=== PATIENT | male | born 1965 | race Caucasian/White ===

== ENCOUNTER 2019-10-24 22:29 | Emergency (ER) | payer OTHER ==
--- NOTE | 2019-10-24 23:18 | EDM.PDOC ---
ED HPI GENERAL MEDICAL PROBLEM - General Chief Complaint: General Stated Complaint: NOT FEELING WELL Time Seen by Provider: 10/24/19 22:50 Source of Information: Reports: Patient History Limitations: Reports: No Limitations - History of Present Illness INITIAL COMMENTS - FREE TEXT/NARRATIVE: Patient states he tried a new type of beer "steel reserve", had 2 cans and went to bed at 2000. woke at 2200 with toe cramps and bilateral hand twitches. He then took 29 units of basalar insulin. He does not take his blood sugar at home or use the insulin daily and has had the insulin for months in his van. 3 years ago he was hospitalized and then was started on insulin d/t blood sugars being 800 while in the hospital. Patient is a poor historian. When the toe/hand cramps started he took 2 tizanidine with some relief. He states his hands twitch like this when he has had too much sugar or caffeine. He denies any CP, SOB, fatigue, cough, fever, excessive thirst or urination, abd pain, N/V/D, vision changes, diaphoresis, or confusion. C/O SOTO and dizziness when standing up for a "while". 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 POC glucose 130. 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 - Related Data Allergies Allergy/AdvReac Type Severity Reaction Status Date / Time No Known Allergies Allergy Verified 10/24/19 22:32 Home Meds: Home Meds Insulin Glargine,Hum.Rec.Anlog [Basaglar Kwikpen U-100] 22 unit SQ BEDTIME 10/24/19 [History] tiZANidine 2 mg PO Q8H 10/24/19 [History] traZODone 100 mg PO BEDTIME 10/24/19 [History] Past Medical History Neurological History: Reports: Neuropathy, Diabetic Psychiatric History: Reports: Other (See Below) Other Psychiatric History: Insomnia Endocrine/Metabolic History: Reports: Diabetes, Type II Social & Family History - Family History Family Medical History: Noncontributory - Tobacco Use Smoking Status *Q: Never Smoker Second Hand Smoke Exposure: No - Caffeine Use Caffeine Use: Reports: Coffee, Energy Drinks, Soda ED ROS GENERAL - Review of Systems Review Of Systems: See Below Constitutional: Reports: No Symptoms HEENT: Reports: No Symptoms Respiratory: Reports: No Symptoms Cardiovascular: Reports: No Symptoms Endocrine: Reports: Other (unknown) GI/Abdominal: Reports: No Symptoms : Reports: No Symptoms Musculoskeletal: Reports: Hand Pain (cramping/twitching), Foot Pain Skin: Reports: No Symptoms Neurological: Reports: No Symptoms Psychiatric: Reports: No Symptoms ED EXAM, GENERAL - Physical Exam Exam: See Below Exam Limited By: No Limitations General Appearance: Alert, No Apparent Distress Eye Exam: Bilateral Eye: PERRL Ears: Normal External Exam Nose: Normal Inspection Throat/Mouth: Normal Inspection, Normal Lips, Normal Teeth, Normal Gums, Normal Oropharynx, Normal Voice, No Airway Compromise Head: Atraumatic Neck: Normal Inspection, Full Range of Motion Respiratory/Chest: No Respiratory Distress, Lungs Clear, Normal Breath Sounds Cardiovascular: Normal Peripheral Pulses, Regular Rate, Rhythm, No Edema, No Murmur GI/Abdominal: Normal Bowel Sounds, Soft, Non-Tender (Male) Exam: Deferred Course - Vital Signs Last Recorded V/S: Last Vital Signs Temp 97.2 F 10/24/19 22:35 Pulse 88 10/24/19 22:35 Resp 16 10/24/19 22:35 BP 119/86 10/24/19 22:35 Pulse Ox 99 10/24/19 22:35 - Orders/Labs/Meds Orders: Active Orders 24 hr Category Date Time Status Blood Glucose Check, Bedside [RC] ONETIME Care 10/24/19 22:43 Active EKG Documentation Completion [RC] ASDIRECTED Care 10/24/19 23:14 Active CARBON DIOXIDE,CO2 [CHEM] Stat Lab 10/24/19 23:14 Ordered EKG 12 Lead [EK] Routine Ther 10/24/19 23:14 Ordered Labs: Laboratory Tests 10/24/19 10/24/19 10/24/19 Range/Units 23:15 23:15 23:15 WBC 5.4 (4.0-11.0) K/uL RBC 4.63 (4.50-6.50) M/uL Hgb 16.1 (13.0-18.0) g/dL Hct 44.0 (40.0-54.0) % MCV 95 (76-96) fL MCH 34.8 H (27.0-32.0) pg MCHC 36.6 H (31.0-35.0) g/dL RDW 12.0 (11.0-16.0) % Plt Count 203 (150-400) K/uL MPV 9.4 (6.0-10.0) fL Neut % (Auto) 40.1 L (45.0-70.0) % Lymph % (Auto) 47.6 H (20.0-40.0) % [place] % (Auto) 9.9 (3.0-10.0) % Eos % (Auto) 1.7 (1.0-5.0) % Baso % (Auto) 0.7 H (0.0-0.5) % Neut # (Auto) 2.18 (2.00-7.50) K/uL Lymph # (Auto) 2.59 (1.50-4.00) K/uL [place] # (Auto) 0.54 (0.20-0.80) K/uL Eos # (Auto) 0.09 (0.04-0.40) K/uL Baso # (Auto) 0.04 (0.02-0.10) K/uL Sodium 130 L (136-145) mmol/L Potassium 3.7 (3.5-5.1) mmol/L Chloride 96 L (98-107) mmol/L Carbon Dioxide 20.3 L (21.0-32.0) mmol/L Anion Gap 17.4 H (5.0-15.0) mmol/L BUN 21 (8-26) mg/dL Creatinine 1.03 (0.70-1.30) mg/dL Est Cr Clr Drug Dosing 67.85 mL/min Estimated GFR (MDRD) > 60 (>60) MLS/MIN BUN/Creatinine Ratio 20.4 (6-25) Glucose 154 H (74-100) mg/dL Hemoglobin A1c 7.0 H (< 5.7) % Calcium 8.3 L (8.5-10.1) mg/dL Total Bilirubin 0.4 (0.0-1.0) mg/dL AST 53 H (15-37) U/L ALT 70 (12-78) U/L Alkaline Phosphatase 58 (46-116) U/L Total Protein 7.5 (6.4-8.2) g/dL Albumin 3.8 (3.4-5.0) g/dL Globulin 3.7 (2.2-4.2) g/dL Albumin/Globulin Ratio 1.0 (0.8-2.0) Urine Color Urine Appearance (CLEAR) Urine pH (5.0-8.0) Ur Specific [place] (1.003-1.030) Urine Protein (NEGATIVE) mg/dL Urine Glucose (UA) (NEGATIVE) mg/dL Urine Ketones (NEGATIVE) mg/dL Urine Occult Blood (NEGATIVE) Urine Nitrite (NEGATIVE) Urine Bilirubin (NEGATIVE) Urine Urobilinogen (0.2-1.0) E.U./dL Ur Leukocyte Esterase (NEGATIVE) U Hyaline Cast (Auto) /HPF Urine RBC /HPF Urine WBC /HPF Ur Squamous Epith Cells /HPF Calcium Oxalate Crystal /HPF Urine Opiates Screen (NEGATIVE) Ur Oxycodone Screen (NEGATIVE) Urine Methadone Screen (NEGATIVE) Ur Barbiturates Screen (NEGATIVE) Ur Tricyclics Screen (NEGATIVE) Ur Phencyclidine Scrn (NEGATIVE) Ur Amphetamine Screen (NEGATIVE) U Methamphetamines Scrn (NEGATIVE) Urine MDMA Screen (NEGATIVE) U Benzodiazepines Scrn (NEGATIVE) U Cocaine Metab Screen (NEGATIVE) U Marijuana (THC) Screen (NEGATIVE) Ethyl Alcohol 44.0 H (<3.0) mg/dL 10/24/19 10/24/19 Range/Units 23:27 23:34 WBC (4.0-11.0) K/uL RBC (4.50-6.50) M/uL Hgb (13.0-18.0) g/dL Hct (40.0-54.0) % MCV (76-96) fL MCH (27.0-32.0) pg MCHC (31.0-35.0) g/dL RDW (11.0-16.0) % Plt Count (150-400) K/uL MPV (6.0-10.0) fL Neut % (Auto) (45.0-70.0) % Lymph % (Auto) (20.0-40.0) % [place] % (Auto) (3.0-10.0) % Eos % (Auto) (1.0-5.0) % Baso % (Auto) (0.0-0.5) % Neut # (Auto) (2.00-7.50) K/uL Lymph # (Auto) (1.50-4.00) K/uL [place] # (Auto) (0.20-0.80) K/uL Eos # (Auto) (0.04-0.40) K/uL Baso # (Auto) (0.02-0.10) K/uL Sodium (136-145) mmol/L Potassium (3.5-5.1) mmol/L Chloride (98-107) mmol/L Carbon Dioxide (21.0-32.0) mmol/L Anion Gap (5.0-15.0) mmol/L BUN (8-26) mg/dL Creatinine (0.70-1.30) mg/dL Est Cr Clr Drug Dosing mL/min Estimated GFR (MDRD) (>60) MLS/MIN BUN/Creatinine Ratio (6-25) Glucose (74-100) mg/dL Hemoglobin A1c (< 5.7) % Calcium (8.5-10.1) mg/dL Total Bilirubin (0.0-1.0) mg/dL AST (15-37) U/L ALT (12-78) U/L Alkaline Phosphatase (46-116) U/L Total Protein (6.4-8.2) g/dL Albumin (3.4-5.0) g/dL Globulin (2.2-4.2) g/dL Albumin/Globulin Ratio (0.8-2.0) Urine Color Yellow Urine Appearance Cloudy (CLEAR) Urine pH 5.0 (5.0-8.0) Ur Specific [place] >= 1.030 (1.003-1.030) Urine Protein 30 H (NEGATIVE) mg/dL Urine Glucose (UA) 100 H (NEGATIVE) mg/dL Urine Ketones 15 H (NEGATIVE) mg/dL Urine Occult Blood Negative (NEGATIVE) Urine Nitrite Negative (NEGATIVE) Urine Bilirubin Negative (NEGATIVE) Urine Urobilinogen 0.2 (0.2-1.0) E.U./dL Ur Leukocyte Esterase Negative (NEGATIVE) U Hyaline Cast (Auto) Few /HPF Urine RBC Not seen /HPF Urine WBC 0-5 H /HPF Ur Squamous Epith Cells Few /HPF Calcium Oxalate Crystal Moderate /HPF Urine Opiates Screen Negative (NEGATIVE) Ur Oxycodone Screen Negative (NEGATIVE) Urine Methadone Screen Negative (NEGATIVE) Ur Barbiturates Screen Negative (NEGATIVE) Ur Tricyclics Screen Negative (NEGATIVE) Ur Phencyclidine Scrn Negative (NEGATIVE) Ur Amphetamine Screen Negative (NEGATIVE) U Methamphetamines Scrn Negative (NEGATIVE) Urine MDMA Screen Negative (NEGATIVE) U Benzodiazepines Scrn Negative (NEGATIVE) U Cocaine Metab Screen Negative (NEGATIVE) U Marijuana (THC) Screen Negative (NEGATIVE) Ethyl Alcohol (<3.0) mg/dL Departure - Departure Time of Disposition: 00:16 Disposition: Home, Self-Care 01 Clinical Impression: Hyponatremia, Hyponatremia Alcohol intoxication Qualifiers: Complication of substance-induced condition: uncomplicated Qualified Code(s): F10.920 - Alcohol use, unspecified with intoxication, uncomplicated Diabetes Qualifiers: Diabetes mellitus type: other specified (including LBAISE) Diabetes mellitus alf insulin use: unspecified 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 Drink plenty of water, and also drink powerade or gatorade to increase your sodium level. Plenty of rest. Diet and activity as tolerated. Follow up in clinic as needed. Call with any questions. Sepsis Event Note (ED) - Evaluation Sepsis Screening Result: No Definite Risk - Focused Exam Vital Signs: Vital Signs Temp Pulse Resp BP Pulse Ox 10/24/19 22:35 97.2 F 88 16 119/86 99 - My Orders Last 24 Hours: My Active Orders 10/24/19 22:43 Blood Glucose Check, Bedside [RC] ONETIME 10/24/19 23:14 EKG Documentation Completion [RC] ASDIRECTED CARBON DIOXIDE,CO2 [CHEM] Stat EKG 12 Lead [EK] Routine - Assessment/Plan Last 24 Hours: My Active Orders 10/24/19 22:43 Blood Glucose Check, Bedside [RC] ONETIME 10/24/19 23:14 EKG Documentation Completion [RC] ASDIRECTED CARBON DIOXIDE,CO2 [CHEM] Stat EKG 12 Lead [EK] Routine Assessment:: DDX may include: CVA, hypoglycemia, hyperglycemia, DKA. Neuro exam unremarkable. POC BS 130. Plan: Discussed with patient ETOH level and other lab work. He agrees to follow up with clinic next week or sooner if increased or new concerning symptoms develop. He verbalized understanding and all questions were answered prior to DC. He was given a RX for a glucometer, lancets, and srtips so he can start checking his blood sugar prior to establishing primary care.
== END 2019-10-25 00:10 | disposition home or self-care (01) ==
LOC: LB.ED 22:29
DX: E13.40 Other specified diabetes mellitus with diabetic neuropathy, unspecified (principal); F10.120 Alcohol abuse with intoxication, uncomplicated; E87.1 Hypo-osmolality and hyponatremia; Y90.2 Blood alcohol level of 40-59 mg/100 ml
CPT/HCPCS: 36415; 80053; 80307; 81001; 82962; 83036; 85025; 93005; 99284-25